=== PATIENT | male | born 1965 | race Caucasian/White ===

== ENCOUNTER → 2023-12-11 09:21 | Outpatient (CLI) | payer OTHER, SELFPAY ==
[2023-12-11 10:12] LABS: COVID-19 CEPHEID 4-PLEX PCR Negative (Negative); Influenza A - CEPHEID Flu A POSITIVE (NEGATIVE); Influenza B - CEPHEID Flu B NEGATIVE (NEGATIVE); Respiratory Syncytial Virus Negative (Negative)
== END ==
PROVIDERS: Visit Provider Registered Nurse
DX: Z20.828 Contact with and (suspected) exposure to other viral communicable diseases (principal)
CPT/HCPCS: 0241U